=== PATIENT | female | born 1980 | race Caucasian/White ===

== ENCOUNTER → 2018-05-05 | Outpatient (CLI) | payer OTHER ==
[2018-05-05 17:04] LABS: BASO % 0.5 % (0.0-1.0); EOS # 0.1 10^3/uL (0.0-0.50); EOS % 0.9 % (0.0-3.0); HEMATOCRIT 34.7 % (36.0-47.0); HEMOGLOBIN 11.4 g/dl (12.0-15.5); LYMPH # 1.4 10^3/uL (1.5-4.5); LYMPH % 23.1 % (24.0-44.0); MEAN CORPUSCULAR HEMOGLOBIN 31.8 pg (27.0-33.0); MEAN CORPUSCULAR HGB CONC 32.9 g/dl (32.0-36.5); MEAN CORPUSCULAR VOLUME 96.9 fl (80.0-96.0); MONO # 0.5 10^3/uL (0.0-0.8); MONO % 9.2 % (0.0-5.0); NEUTROPHILS # 3.9 10^3/uL (1.8-7.7); NEUTROPHILS % 66.1 % (36.0-66.0); PLATELET COUNT, AUTOMATED 220 10^3/uL (150-450); RED BLOOD COUNT 3.58 10^6/uL (4.00-5.40); WHITE BLOOD COUNT 5.9 10^3/uL (4.0-10.0)
[2018-05-05 17:13] LABS: FREE T4 0.84 NG/DL (0.76-1.46); THYROID STIMULATING HORMONE 1.9 uIU/ML (0.358-3.740)
== END ==
LOC: M WUC 12:14
PROVIDERS: ATTEND Nurse Practitioner Women's Health
DX: N92.0 Excessive and frequent menstruation with regular cycle (principal)

== ENCOUNTER → 2020-07-05 | Outpatient (CLI) | payer OTHER ==
[2020-07-05 16:37] LABS: BASO # 0.1 10^3/uL (0.0-0.2); BASO % 0.9 % (0.0-1.0); EOS # 0.1 10^3/uL (0.0-0.5); EOS % 2.2 % (0.0-3.0); HEMATOCRIT 35.9 % (36.0-47.0); HEMOGLOBIN 11.7 g/dl (12.0-15.5); LYMPH # 2.1 10^3/uL (1.5-5.0); MEAN CORPUSCULAR HEMOGLOBIN 31.5 pg (27.0-33.0); MEAN CORPUSCULAR HGB CONC 32.6 g/dl (32.0-36.5); MEAN CORPUSCULAR VOLUME 96.8 fl (80.0-96.0); MONO # 0.7 10^3/uL (0.0-0.8); MONO % 11.1 % (2.0-8.0); NEUTROPHILS # 2.9 10^3/uL (1.5-8.5); NEUTROPHILS % 49.5 % (36.0-66.0); PLATELET COUNT, AUTOMATED 287 10^3/uL (150-450); RED BLOOD COUNT 3.71 10^6/uL (4.00-5.40); WHITE BLOOD COUNT 5.9 10^3/uL (4.0-10.0)
[2020-07-05 16:45] LABS: ALT/SGPT 24 U/L (12-78); BILIRUBIN,TOTAL 0.5 MG/DL (0.2-1.0); BLOOD UREA NITROGEN 13 MG/DL (7-18); CALCIUM LEVEL 9.4 MG/DL (8.5-10.1); CARBON DIOXIDE LEVEL 26 MEQ/L (21-32); CHLORIDE LEVEL 109 MEQ/L (98-107); CREATININE FOR GFR 0.65 MG/DL (0.55-1.30); GLOMERULAR FILTRATION RATE > 60.0 (>58); GLUCOSE, FASTING 109 MG/DL (70-100); POTASSIUM SERUM 3.5 MEQ/L (3.5-5.1); SODIUM LEVEL 138 MEQ/L (136-145); TOTAL PROTEIN 7.6 GM/DL (6.4-8.2)
--- NOTE | 2020-07-06 06:15 | REP ---
INDICATION: PAIN COMPARISON: None. TECHNIQUE: AP, lateral, bilateral oblique views left hand. FINDINGS: The osseous structures and joint spaces are intact and normal. There is no evidence for acute fracture or dislocation. Surrounding soft tissues are unremarkable. No subcutaneous emphysema or radiodense foreign body. IMPRESSION: Normal age-appropriate left hand radiographs. <Electronically signed by Mark Shirley > 07/06/20 [id number]
== END ==
LOC: M WUC 14:35
PROVIDERS: ATTEND Physician Assistant
DX: M79.642 Pain in left hand (principal); G43.009 Migraine without aura, not intractable, without status migrainosus; G47.9 Sleep disorder, unspecified; F33.1 Major depressive disorder, recurrent, moderate

== ENCOUNTER → 2022-12-12 | Outpatient (REF) | payer OTHER | LOC: M SFHCWAGY 17:53 | PROVIDERS: ATTEND Nurse Practitioner Family | DX: Z12.4 Encounter for screening for malignant neoplasm of cervix (principal) ==

== ENCOUNTER → 2022-12-12 | Outpatient (CLI) | payer OTHER | LOC: M WHC 12:56 | PROVIDERS: ATTEND Nurse Practitioner Family | DX: Z12.31 Encounter for screening mammogram for malignant neoplasm of breast (principal) ==

== ENCOUNTER → 2023-03-26 | Outpatient (CLI) | payer OTHER ==
[2023-03-26 13:12] LABS: HEMATOCRIT 38.1 % (36.0-47.0); HEMOGLOBIN 12.7 g/dl (12.0-15.5); MEAN CORPUSCULAR HEMOGLOBIN 33.5 pg (27.0-33.0); MEAN CORPUSCULAR HGB CONC 33.3 g/dl (32.0-36.5); MEAN CORPUSCULAR VOLUME 100.5 fl (80.0-96.0); PLATELET COUNT, AUTOMATED 244 10^3/uL (150-450); RED BLOOD COUNT 3.79 10^6/uL (4.00-5.40)
[2023-03-26 13:35] LABS: ALBUMIN 3.8 G/DL (3.2-5.2); ALKALINE PHOSPHATASE 64 U/L (46-116); ALT/SGPT 19 U/L (7.0-40); AST/SGOT 15 U/L (<34); BILIRUBIN,TOTAL 0.5 MG/DL (0.3-1.2); BLOOD UREA NITROGEN 12 MG/DL (9-23); CARBON DIOXIDE LEVEL 23 MMOL/L (20-31); CHLORIDE LEVEL 112 MMOL/L (98-107); CREATININE FOR GFR 0.71 MG/DL (0.55-1.30); GLOMERULAR FILTRATION RATE > 60.0 (>58); GLUCOSE, FASTING 88 MG/DL (60-100); POTASSIUM SERUM 3.6 MMOL/L (3.5-5.1); SODIUM LEVEL 141 MMOL/L (136-145)
[2023-03-26 13:39] LABS: THYROID STIMULATING HORMONE 3.806 uIU/ML (0.55-4.78)
[2023-03-27 07:06] LABS: WHITE BLOOD COUNT 5.2 10^3/uL (4.0-10.0)
== END ==
LOC: M WUC 10:36
PROVIDERS: ATTEND Physician Assistant
DX: D64.9 Anemia, unspecified (principal); E04.9 Nontoxic goiter, unspecified; F33.1 Major depressive disorder, recurrent, moderate

== ENCOUNTER → 2024-02-11 | Outpatient (CLI) | payer OTHER ==
[2024-02-11 18:31] LABS: HEMATOCRIT 38.9 % (36.0-47.0); HEMOGLOBIN 13.1 g/dl (12.0-15.5); MEAN CORPUSCULAR HEMOGLOBIN 33.5 pg (27.0-33.0); MEAN CORPUSCULAR HGB CONC 33.7 g/dl (32.0-36.5); MEAN CORPUSCULAR VOLUME 99.5 fl (80.0-96.0); PLATELET COUNT, AUTOMATED 258 10^3/uL (150-450); RED BLOOD COUNT 3.91 10^6/uL (4.00-5.40)
[2024-02-11 18:40] LABS: ALKALINE PHOSPHATASE 74 U/L (35-104); ALT/SGPT 16 U/L (7.0-40); AST/SGOT 17 U/L (<34); BILIRUBIN,TOTAL 0.8 MG/DL (0.3-1.2); BLOOD UREA NITROGEN 12 MG/DL (9-23); CALCIUM LEVEL 9.4 MG/DL (8.5-10.1); CARBON DIOXIDE LEVEL 19 MMOL/L (20-31); CHLORIDE LEVEL 112 MMOL/L (98-107); CREATININE FOR GFR 0.72 MG/DL (0.55-1.30); GLOMERULAR FILTRATION RATE > 60.0 (>58); GLUCOSE, FASTING 90 MG/DL (60-100); POTASSIUM SERUM 3.5 MMOL/L (3.5-5.1); SODIUM LEVEL 141 MMOL/L (136-145); TOTAL PROTEIN 7.8 G/DL (5.7-8.2)
[2024-02-11 18:41] LABS: PTH INTACT 18.2 PG/ML (18.5-88.0)
[2024-02-11 18:44] LABS: FOLATE > 24.0 NG/ML (>5.4)
[2024-02-11 18:45] LABS: VITAMIN B12 LEVEL 759 PG/ML (211-911)
[2024-02-12 09:24] LABS: WHITE BLOOD COUNT 5.1 10^3/uL (4.0-10.0)
== END ==
LOC: M WUC 13:16
PROVIDERS: ATTEND Physician Assistant
DX: D51.9 Vitamin B12 deficiency anemia, unspecified (principal); E83.51 Hypocalcemia; Z23 Encounter for immunization